=== PATIENT | female | born 1995 | race Caucasian/White ===

== ENCOUNTER → 2017-01-11 | Outpatient (CLI) | payer BC, OTHER | LOC: COL.RAD 12-28 09:15 | DX: S73.192A Other sprain of left hip, initial encounter (principal); X58.XXXA Exposure to other specified factors, initial encounter; M25.552 Pain in left hip | CPT/HCPCS: A9585; J3301; Q9967 ==

== ENCOUNTER → 2017-01-30 | Outpatient (CLI) | payer BC, OTHER | LOC: COL.RAD 08:53 | DX: S73.191A Other sprain of right hip, initial encounter (principal); X58.XXXA Exposure to other specified factors, initial encounter | CPT/HCPCS: A9585; J3301; Q9967 ==

== ENCOUNTER 2019-12-09 21:34 | Emergency (ER) | payer BC ==
[~2019-12-09] VITALS: Ht 167.6 cm; Wt 67.7 kg
[2019-12-09 21:54] VITALS: TEMP 97.4
[2019-12-10] VITALS: BP 110/73; PULSE 95
== END 2019-12-10 | disposition home or self-care (01) ==
LOC: COL.ER 21:34
PROVIDERS: Physician Assistant
DX: F10.129 Alcohol abuse with intoxication, unspecified (principal)
CPT/HCPCS: J2405; J7030